=== PATIENT | male | born 1990 | race Caucasian/White ===

== ENCOUNTER 2021-02-28 22:45 | Emergency (ER) | payer SELFPAY ==
[2021-02-28 23:12] VITALS: BP 132/83; PULSE 111; RESP 18; TEMP 36.3; O2SAT 96; BMI 31.6
--- NOTE | 2021-03-01 01:32 | W.ED.SKABFB ---
HPI - Skin/Abscess/Foreign Bdy General: Chief complaint: Skin/Abscess/Foreign Body Stated complaint: bite to R leg Time Seen by Provider: 03/01/21 01:32 Source: patient Mode of arrival: ambulatory Limitations: no limitations History of Present Illness: HPI narrative: Patient is a 31-year-old male who presents to ED today with complaint of an abscess to his right upper thigh. Patient tells me approximately 4 days ago area started as a small pimple but has progressed. He is not running fevers. He reports one previous abscess to his left knee had to be taken to the OR and drained. He is not sure of any history of staph or MRSA. MD complaint: abscess/boil Onset (ago): day(s) Tetanus up to date: yes Location: RLE Severity: moderate Pain Consistency: constant Relieving factors: none Exacerbating factors: none Context: none Associated symptoms: Reports no associated symptoms; Deny chills, fever(s), nausea or vomiting Treatments prior to arrival: none Review of Systems Const: Denies: fever(s), chills, body aches or night sweats Card: Denies: chest pain Resp: Denies: dyspnea GI: Denies: nausea or vomiting Skin/Breast: Reports: new lesions (abscess) Neuro: Denies: numbness in extremities or sensory changes Physical Exam Const: COMMON NORMALS: no acute distress, patient oriented x3, no limitations and alert GENERAL APPEARANCE: cooperative Resp: COMMON NORMALS: normal respiratory effort and clear to auscultation bilaterally AUSCULTATION: clear to auscultation bilaterally Cardio: COMMON NORMALS: regular rhythm RATE: tachycardic RHYTHM: regular rhythm Extremity: COMMON NORMALS: full ROM, capillary refill normal, no joint enlargement, no clubbing, cyanosis or edema, no calf tenderness and no pedal edema NARRATIVE EXTREMITY EXAM: see skin assessment GENERAL: Yes normal exam except as noted Neuro: COMMON NORMALS: patient oriented x3 SENSORIUM/ORIENTATION: Yes alert Skin: SKIN IMAGES (MALE): 1. 1.5 inch fluctuant abscess 2. 7 x 9 inches of surrounding erythema/warmth; erythema does not spread into perineal region/scrotum Procedures Abscess I/D Site: lower extremity Side (if applicable): right Local Anesthetic: lidocaine 1% Amount of anesthesia used (mL): 4.0 Technique: incised with #11 blade Amount of fluid expressed (mL): 3.0 Irrigation: Yes Packing used?: plain Complications: other (none) Course Vital Signs: Vital signs: Vital Signs Temperature 97.3 F L 02/28/21 23:12 Pulse Rate 91 03/01/21 03:15 Respiratory Rate 16 03/01/21 03:15 Blood Pressure 120/81 03/01/21 03:15 Pulse Oximetry 96 03/01/21 03:15 MDM - Skin/Abscess/Foreign Bdy MDM Narrative: Medical decision making narrative: Cellulitis was marked with skin marker. Abscess drained and cultures sent. White count of 16.3 with a normal lactate. Initially tachycardic but this has resolved. Dose of IV vancomycin given here. Will place on Bactrim DS. Strict return to ED precautions given if he worsens in the next 24 hours. Patient verbalized understanding. Lab Data: Labs: Lab Results 03/01/21 03/01/21 03/01/21 Range/Units 01:51 01:51 02:00 WBC 16.3 H (4.0-10.0) 10^3/ uL RBC 5.25 (4.1-5.3) 10^6/u L Hgb 16.5 (11.7-16.6) g/dL Hct 48.4 (42.0-52.0) % MCV 92.2 (80-94) fL MCH 31.4 (28.0-34.0) pg MCHC 34.1 (30.0-36.0) g/dL RDW 11.9 L (12.1-15.1) % Plt Count 211 (130-400) 10^3/c mm MPV 10.3 (7.4-10.4) fL Neut % (Auto) 67.8 % Lymph % (Auto) 19.8 % [place] % (Auto) 9.2 % Eos % (Auto) 2.5 % Baso % (Auto) 0.3 % Neut # (Auto) 11.06 H (1.8-7.7) 10^3/u L Lymph # (Auto) 3.2 (0.8-4.8) 10^3/u L [place] # (Auto) 1.5 H (0.2-0.9) 10^3/u L Eos # (Auto) 0.4 (0.0-0.8) 10^3/u L Baso # (Auto) 0.1 (0.0-0.1) 10^3/u L Nucleated RBC % (a uto) 0 % Nucleated RBCs # 0.0 /100WBC Sodium 138 (136-145) mmol/L Potassium 4.0 (3.5-5.1) mmol/L Chloride 102 (98-107) mmol/L Carbon Dioxide 28 (22-29) mmol/L Anion Gap 12.0 (5-19) BUN 29 H (6-20) mg/dL Creatinine 1.0 (0.7-1.2) mg/dL GFR Calculation 88.3 L (90-130) mL/min Glucose 85 (65-115) mg/dL Calculated Osmolal ity 291 (285-295) mOsm/k g Lactic Acid 0.6 (0.5-2.2) mmol/L Calcium 9.1 (8.5-10.5) mg/dL Total Bilirubin 0.5 (0.15-1.2) mg/dL AST 17 (0-40) U/L ALT 24 (0-41) U/L Alkaline Phosphata se 80 (40-130) IU/L Total Protein 7.4 (6.6-8.7) g/dL Albumin 4.4 (3.5-5.2) g/dL Globulin 3.0 (1.3-4.6) g/dL Discharge Plan Discharge Patient Disposition: Home Clinical Impression: Abscess of right thigh, Cellulitis of right thigh Condition: Stable Prescriptions: New Bactrim DS 800-160 mg tablet 2 tab PO BID 7 Days Qty: 28 RF: 0 Discharge Orders: Discharge ED (Routine); Ordered 03/01/21 Ordered By: Sita Good Patient Instructions: Cellulitis (ED), Abscess Incision and Drainage (ED), Abscess (ED) Activity Restrictions/Additional Instructions: Please monitor your abscess for worsening redness (outside of the lines marked today), swelling, increased drainage, or fevers. If symptoms worsen over the next 24 hours you need to immediately return to the emergency department for re-evaluation. If your abscess was incised and drained and packing was placed, you can remove this in 72 hours. Coding Level of Care Code ED Turning Machine Operator for Chg Fwd Exam Expanded Problem Focused
[2021-03-01] MEDS: vancomycin 1,000 MG in sodium chloride 0.9% 250 ML 250 MG IV (02:03)
[2021-03-01] MEDS: lidocaine 2% INJ 20 mL INJECTION (02:05)
[2021-03-01 02:13] LABS: Basophils # 0.1 10^3/uL (0.0-0.1); Basophils % 0.3 %; Eosinophils # 0.4 10^3/uL (0.0-0.8); Eosinophils % 2.5 %; Hematocrit 48.4 % (42.0-52.0); Hemoglobin 16.5 g/dL (11.7-16.6); Lymphocytes # 3.2 10^3/uL (0.8-4.8); Lymphocytes % 19.8 %; Mean Corpuscular HGB Conc 34.1 g/dL (30.0-36.0); Mean Corpuscular Hemoglobin 31.4 pg (28.0-34.0); Mean Corpuscular Volume 92.2 fL (80-94); Mean Platelet Volume 10.3 fL (7.4-10.4); Monocytes # 1.5 10^3/uL (0.2-0.9); Monocytes % 9.2 %; Neutrophils # 11.06 10^3/uL (1.8-7.7); Neutrophils % 67.8 %; Nucleated Red Blood Cells % 0 %; Platelet Count 211 10^3/cmm (130-400); Red Blood Count 5.25 10^6/uL (4.1-5.3); Red Cell Distribution Width 11.9 % (12.1-15.1); White Blood Count 16.3 10^3/uL (4.0-10.0)
[2021-03-01 02:22] LABS: Alanine Aminotransferase 24 U/L (0-41); Albumin Level 4.4 g/dL (3.5-5.2); Alkaline Phosphatase 80 IU/L (40-130); Aspartate Amino Transferase 17 U/L (0-40); Blood Urea Nitrogen 29 mg/dL (6-20); Calcium 9.1 mg/dL (8.5-10.5); Carbon Dioxide 28 mmol/L (22-29); Chloride 102 mmol/L (98-107); Glomerular Filtration Rate 88.3 mL/min (90-130); Glucose 85 mg/dL (65-115); Osmolality Calculated 291 mOsm/kg (285-295); Sodium 138 mmol/L (136-145); Total Bilirubin 0.5 mg/dL (0.15-1.2); Total Protein 7.4 g/dL (6.6-8.7)
[2021-03-01 02:31] LABS: Lactic Sepsis W/Reflex 0.6 mmol/L (0.5-2.2)
[2021-03-01 02:59] VITALS: BP 134/73; PULSE 93; RESP 16; O2SAT 96
[2021-03-01 03:15] VITALS: BP 120/81; PULSE 91; RESP 16; O2SAT 96
--- NOTE | 2021-03-01 03:24 | PC.NURSE ---
Bandage applied to wound; no drainage noted at this time. Pt tolerated well.
--- NOTE | 2021-03-03 10:18 | PC.NURSE ---
CRITICAL RESULT TAKEN FROM [facility]; PT ALENA VALERIO 1990 ABSCESS CULTURE GREW OUT MRSA. RESULT GIVEN TO PHYSICIAN ON DUTY DR JONES.
== END 2021-03-01 03:16 | disposition home or self-care (01) ==
PROVIDERS: Emergency Provider Physician Assistant
DX: L02.415 Cutaneous abscess of right lower limb (principal); L03.115 Cellulitis of right lower limb
CPT/HCPCS: 10060; 80053; 83605; 85025; 87040; 87070; 87075; 87077; 87186; 87205; 96365; 99283; J3370; J7050